=== PATIENT | male | born 1980 | race Caucasian/White ===

== ENCOUNTER 2017-12-18 15:05 | Emergency (ER) | payer OTHER ==
--- NOTE | 2017-12-18 15:25 | CPEKG ---
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
[2017-12-18 15:50] LABS: PLATELET COUNT 325 10^3/uL (150-400)
[2017-12-18 16:04] LABS: CREATINE KINASE 55 IU/L (0-224)
--- NOTE | 2017-12-18 16:27 | EDPHY ---
H & P Time Seen by Provider: 12/18/17 16:25 HPI/ROS: Chief complaint. Chest pain HPI. 37-year-old male presents emergency department with chest discomfort. He has had chest discomfort off and on for 1 month. It is different places in his chest. Today he had chest tightness from - 30 still has slight tightness now. No radiation. He initially tells me no change with breathing, exertion or position and then subsequently tells me that maybe it somewhat worse with breathing. No fever cough. No unusual leg pain or swelling. He saw his physician yesterday who did an EKG and the patient had Q-waves and was sent here because of an abnormal EKG. ROS Constitutional. no fever/chills, no weakness Eyes. no problems with vision ENT. no sore throat, no nasal drainage Cardiovascular. Chest tightness Respiratory. no shortness of breath, no cough Abdominal. no abdominal pain, no nausea/vomiting, no diarrhea . no problems urinating MS. no calf pain/swelling, no neck/back pain, no joint pain Skin. no rash Lymph. no swollen glands Neuro. no headache, no dizziness, no difficulty walking or with speech Past Medical/Surgical History: Healthy No family history of early coronary artery disease Social History: , nonsmoker, no alcohol Smoking Status: Never smoked Physical Exam: General Appearance: Alert well-developed male mild distress vital signs are stable Eyes: Pupils equal and round no pallor or injection. ENT, Mouth: Mucous membranes are moist. Respiratory: There are no retractions, lungs are clear to auscultation. Cardiovascular: Regular rate and rhythm. Gastrointestinal: Abdomen is soft and nontender, no masses, bowel sounds normal. Neurological: Awake and alert, sensory and motor exams grossly normal. Skin: Warm and dry, no rashes. Musculoskeletal: Neck is supple nontender. Extremities symmetrical, full range of motion. Psychiatric: Patient is oriented X 3, there is no agitation. Constitutional: Initial Vital Signs Temperature (C) 36.7 C 12/18/17 15:08 Heart Rate 65 12/18/17 15:08 Respiratory Rate 18 12/18/17 15:08 Blood Pressure 130/69 H 12/18/17 15:08 O2 Sat (%) 99 12/18/17 15:08 O2 Delivery Mode Room Air Allergies/Adverse Reactions: No Known Allergies Allergy (Verified 01/17/14 14:08) Home Medications: Medication Instructions Recorded NK [No Known Home Meds] 01/10/14 Medical Decision Making - Diagnostics EKG Interpretation: EKG interpreted by me shows normal sinus rhythm normal interval and axis. QRS shows nonsignificant Q-waves in lead 3. There is no significant ST elevation or depression. No arrhythmia. LVH by voltage criteria though the patient has been chest wall. Rate is 63 Imaging Results: Imaging Impressions Chest X-Ray 12/18/17 16:37 Impression: 1. No acute pulmonary disease. 2. Consider chest two views when the patient's medical condition permits. Procedures: IV normal saline ED Course/Re-evaluation: Re-evaluation at 6:05 p.m.. Patient and I discussed imaging and lab results. We discussed treatment plan including recommendation for follow-up and further evaluation as well as criteria for return. He expresses understanding and agreement The patient already has a follow-up appointment with Cardiology for further evaluation Differential Diagnosis: I considered acute coronary syndrome, pulmonary embolus, GI etiology, musculoskeletal etiology. No evidence for acute coronary syndrome or PE - Data Points Laboratory Results: Laboratory Results 12/18/17 15:33 12/18/17 15:33 12/18/17 12/18/17 12/18/17 16:38 15:33 15:33 WBC 8.40 10^3/uL 10^3/uL (3.80-9.50) RBC 4.80 10^6/uL 10^6/uL (4.40-6.38) Hgb 16.1 g/dL g/dL (13.7-17.5) Hct 44.8 % % (40.0-51.0) MCV 93.3 fL fL (81.5-99.8) MCH 33.5 pg pg (27.9-34.1) MCHC 35.9 g/dL g/dL (32.4-36.7) RDW 11.5 % % (11.5-15.2) Plt Count 325 10^3/uL 10^3/uL (150-400) MPV 8.8 fL fL (8.7-11.7) Neut % (Auto) 49.0 % % (39.3-74.2) Lymph % (Auto) 37.9 % % (15.0-45.0) [place] % (Auto) 7.5 % % (4.5-13.0) Eos % (Auto) 4.3 % % (0.6-7.6) Baso % (Auto) 1.2 % % (0.3-1.7) Nucleat RBC Rel Count 0.0 % % (0.0-0.2) Absolute Neuts (auto) 4.12 10^3/uL 10^3/uL (1.70-6.50) Absolute Lymphs (auto) 3.18 10^3/uL H 10^3/uL (1.00-3.00) Absolute Monos (auto) 0.63 10^3/uL 10^3/uL (0.30-0.80) Absolute Eos (auto) 0.36 10^3/uL 10^3/uL (0.03-0.40) Absolute Basos (auto) 0.10 10^3/uL 10^3/uL (0.02-0.10) Absolute Nucleated RBC 0.00 10^3/uL 10^3/uL (0-0.01) Immature Gran % 0.1 % % (0.0-1.1) Immature Gran # 0.01 10^3/uL 10^3/uL (0.00-0.10) D-Dimer < 0.27 ug/mLFEU ug/mLFEU (0.00-0.50) Sodium 143 mEq/L mEq/L (135-145) Potassium 4.2 mEq/L mEq/L (3.5-5.2) Chloride 104 mEq/L mEq/L (97-110) Carbon Dioxide 26 mEq/l mEq/l (22-31) Anion Gap 13 mEq/L mEq/L (8-16) BUN 12 mg/dL mg/dL (7-23) Creatinine 0.7 mg/dL mg/dL (0.7-1.3) Estimated GFR > 60 Glucose 106 mg/dL H mg/dL (70-100) Calcium 9.8 mg/dL mg/dL (8.5-10.4) Creatine Kinase 55 IU/L IU/L (0-224) CK-MB (CK-2) Fraction 1.19 ng/mL ng/mL (0.00-3.19) Troponin I < 0.012 ng/mL ng/mL (0.000-0.034) Departure - Departure Disposition: Home, Routine, Self-Care Clinical Impression: Chest pain Qualifiers: Chest pain type: unspecified Qualified Code(s): R07.9 - Chest pain, unspecified Condition: Good Instructions: Chest Pain (ED) Additional Instructions: Activity as tolerated. Return for worsening chest discomfort or trouble breathing. Keep your follow-up appointment with Cardiology. Referrals: Jason Boston DO [Primary Care Provider] - As per Instructions
[2017-12-18 18:34] VITALS: BP 119/78
== END 2017-12-18 18:35 | disposition home or self-care (01) ==
DX: R07.9 Chest pain, unspecified (principal)